=== PATIENT | female | born 1985 | race Two or more races ===

== ENCOUNTER 2018-11-25 04:57 | Emergency (ER) | payer OTHER ==
[~2018-11-25] VITALS: Ht 154.9 cm; Wt 55.0 kg
[2018-11-25 06:18] LABS: BASOPHILS % 0.8 % (0.0-2.0); EOSINOPHILS % 1.4 % (0.0-5.0); HEMATOCRIT. 35.1 % (36.0-48.0); HEMOGLOBIN. 10.5 g/dL (12.0-16.0); MEAN CORPUSCULAR HEMOGLOBIN 22.3 pg (28.0-32.0); MEAN CORPUSCULAR VOLUME 74.4 fL (81.0-99.0); MEAN PLATELET VOLUME 7.3 fl (7.4-10.4); MONOCYTES % 9.6 % (2.0-8.0); NEUTROPHILS % 58.2 % (40.0-76.0); PLATELET 307 x1000/uL (130-400); RED BLOOD CELL COUNT 4.72 mill/uL (4.2-5.4); RED CELL DISTRIBUTION WIDTH 18.6 % (11.6-14.6)
[2018-11-25 06:22] LABS: CHLORIDE 101 mEq/L (98-107)
[2018-11-25 06:27] LABS: ETHANOL BLOOD < 10 mg/dL
[2018-11-25 06:28] LABS: HCG SCREEN NEGATIVE
[2018-11-25 07:02] LABS: CLARITY URINE CLEAR (CLEAR); COLOR URINE YELLOW (YELLOW); KETONES URINE NEGATIVE (NEGATIVE); LEUKOCYTE ESTERASE URINE 1+ (NEGATIVE); NITRITE URINE NEGATIVE (NEGATIVE); OCCULT BLOOD URINE NEGATIVE (NEGATIVE); PH URINE 5.5 (4.5-8.0); PROTEIN URINE NEGATIVE (NEGATIVE); SPECIFIC GRAVITY URINE 1.006 (1.005-1.030); UROBILINOGEN URINE 0.2 E.U./dL (0.2-1.0)
[2018-11-25] MEDS ORDERED: FUROSEMIDE 40MG TABLET PO ONE (09:45)
[2018-11-25 10:00] VITALS: BP 122/87
== END 2018-11-25 10:38 | disposition home or self-care (01) ==
LOC: ER 04:57
DX: R60.9 Edema, unspecified (principal); I50.9 Heart failure, unspecified; F17.200 Nicotine dependence, unspecified, uncomplicated; K74.60 Unspecified cirrhosis of liver
CPT/HCPCS: 36415; 71045; 76705; 80053; 81003; 81025; 83735; 83880; 84484; 84703; 85025; 93005; 93970; 99284; G0482